=== PATIENT | male | born 1955 | race Caucasian/White ===

== ENCOUNTER 2022-08-15 04:17 | Emergency (ER) | payer OTHER ==
[~2022-08-15] VITALS: Ht 190.5 cm; Wt 136.1 kg
[2022-08-15 04:43] LABS: Basophils # (auto) 0 10 ^3/uL (0-0.2); Basophils % (auto) 0.4 % (0.0-2.0); Eosinophils # (auto) 0 10 ^3/uL (0-0.8); Eosinophils % (auto) 0.4 % (0.0-7.0); Hematocrit 46.3 % (41.0-53.0); Hemoglobin 15.8 g/dL (13.5-17.5); Lymphocytes # (auto) 0.8 10 ^3/uL (0.4-5.4); Lymphocytes % (auto) 7.2 % (10.0-50.0); Mean Corpuscular Volume 85.3 fL (80.0-100.0); Monocytes # (auto) 0.7 10 ^3/uL (0-1.3); Monocytes % (auto) 6.9 % (0.0-12.0); Neutrophils % (auto) 85.1 % (37.0-80.0); Nucleated Red Blood Cells % 0.1 %; Red Blood Cells 5.43 10^6/uL (4.5-5.90); Red Cell Distribution Width 14.2 % (11.8-14.3); White Blood Cell 10.6 10^3/uL (4.4-10.8)
[2022-08-15 04:55] LABS: INR 1.05 (0.9-1.15); Partial Thromboplastin Time 26.3 sec (24.6-33.4)
[2022-08-15 05:02] LABS: Albumin 3.8 g/dL (3.4-5.0); BUN/Creatinine Ratio 13.4; Calcium 8.9 mg/dL (8.5-10.1); Magnesium 1.8 mg/dL (1.6-2.6); Potassium 4.1 mmol/L (3.5-5.1)
[2022-08-15 05:05] LABS: Bilirubin, Total 0.5 mg/dL (0.2-1.0); Total Protein 7.3 g/dL (6.4-8.2)
[2022-08-15 09:33] LABS: Urine Bacteria NONE SEEN /hpf (None Seen); Urine Blood Negative /uL (Negative); Urine Hyaline Cast FEW /lpf (0 - 2); Urine WBC <1 /hpf (0 - 3)
[2022-08-15] MEDS ORDERED: AZITHROMYCIN 500MG/ 250ML 250 ML IV ONE (11:15)
[2022-08-15] MEDS ORDERED: cefTRIAXone 1GM/50ML D5W 50 ML IV ONE (11:15)
[2022-08-15 14:26] VITALS: BP 147/90
== END 2022-08-15 14:52 | disposition home or self-care (01) ==
LOC: EDBD 04:17 → ER 04:17
DX: I11.0 Hypertensive heart disease with heart failure (principal); I50.9 Heart failure, unspecified; E11.9 Type 2 diabetes mellitus without complications; R51.9 Headache, unspecified; R07.89 Other chest pain; Z20.822 Contact with and (suspected) exposure to COVID-19
CPT/HCPCS: 36415; 70450; 71045; 71275; 80053; 81001; 82962; 83605; 83735; 83880; 84484; 85025; 85379; 85610; 85730; 87040; 87077; 87186; 87426; 87804; 93005; 93306; 96365; 96366; 96368; 99285; J0456; J0696; Q9967

== ENCOUNTER 2024-03-19 20:15 | Emergency (ER) | payer OTHER ==
[~2024-03-19] VITALS: Ht 188 cm; Wt 70.0 kg
[2024-03-19 21:02] VITALS: PULSE 107; RESP 20; O2SAT 96
[2024-03-19 21:55] LABS: Basophils # (auto) 0 10 ^3/uL (0-0.2); Basophils % (auto) 0.3 % (0.0-2.0); Eosinophils # (auto) 0 10 ^3/uL (0-0.8); Eosinophils % (auto) 0.1 % (0.0-7.0); Hematocrit 39.8 % (41.0-53.0); Hemoglobin 13.7 g/dL (13.5-17.5); Lymphocytes # (auto) 0.9 10 ^3/uL (0.4-5.4); Lymphocytes % (auto) 9.2 % (10.0-50.0); Mean Corpuscular Hemoglobin 30.3 pg (28.0-32.0); Mean Corpuscular Hgb Conc. 34.4 g/dL (32.0-36.0); Mean Corpuscular Volume 88.1 fL (80.0-100.0); Monocytes # (auto) 1.2 10 ^3/uL (0-1.3); Monocytes % (auto) 11.6 % (0.0-12.0); Neutrophils # (auto) 7.9 10 ^3/uL (1.6-8.6); Neutrophils % (auto) 78.8 % (37.0-80.0); Nucleated Red Blood Cells % 0.1 %; Platelet Count (auto) 190 10^3/uL (140-450); Red Blood Cells 4.52 10^6/uL (4.5-5.90); Red Cell Distribution Width 14.2 % (11.8-14.3)
[2024-03-19 22:06] LABS: Chloride 105 mmol/L (98-107); Potassium 3.8 mmol/L (3.5-5.1); Sodium 137 mmol/L (136-145)
[2024-03-19 22:07] LABS: Anion Gap 8 (5-15); Carbon Dioxide 24 mmol/L (20-30)
[2024-03-19 22:08] LABS: Calcium 9.6 mg/dL (8.7-10.4)
[2024-03-19 22:12] LABS: BUN/Creatinine Ratio 9.2 (10.0-20.0); Blood Urea Nitrogen 16 mg/dL (9-23); Glucose 180 mg/dL (74-106)
[2024-03-19] MEDS: IOHEXOL 350 MG/ML 100ML IJ ONE (23:19)
[2024-03-19] MEDS: SODIUM CHLORIDE 0.9% 1,000 ML IV ONE (23:20)
[2024-03-19] MEDS: MORPHINE SULFATE 4 MG/ML SYR/VIAL IV ONE (23:54)
[2024-03-20] MEDS: MORPHINE SULFATE 4 MG/ML SYR/VIAL IV ONE (07:00)
[2024-03-20 09:02] VITALS: BP 150/90; PULSE 98; RESP 15; TEMP 98.3; O2SAT 93
== END 2024-03-20 09:29 | disposition short-term general hospital (02) ==
LOC: EDBD 20:15 → ER 20:15
DX: R06.02 Shortness of breath (principal); R55 Syncope and collapse; R42 Dizziness and giddiness; R53.1 Weakness; J44.9 Chronic obstructive pulmonary disease, unspecified; E11.9 Type 2 diabetes mellitus without complications; I10 Essential (primary) hypertension; Z96.651 Presence of right artificial knee joint
CPT/HCPCS: 36415; 71275; 73562; 80048; 83605; 84484; 85025; 93005; 96361; 96374; 96376; 99285; J2270; J7030; Q9967